=== PATIENT | male | born 1960 | race Caucasian/White ===

== ENCOUNTER 2019-07-29 15:46 | Emergency (ER) | payer SELFPAY ==
[2019-07-29 15:52] VITALS: BP 169/75; PULSE 77; RESP 16; TEMP 36.9; O2SAT 100
--- NOTE | 2019-07-29 15:59 | ED.SKABFB ---
HPI - Skin/Abscess/Foreign Bdy General Chief complaint: Skin/Abscess/Foreign Body Stated complaint: poison kaleb or oak Time Seen by Provider: 07/29/19 15:59 Source: patient and RN notes reviewed History of Present Illness HPI narrative: Patient is a 59-year-old male who presents the urgent care with complaints of possible poison kaleb/poison oak. Patient states that he was playing tennis on July 06 and went to fetch a ball and evergreen tree/some brush. Patient states that he believes he got it at that time and has been having issues ever since. Patient states that he has areas from the bottom of his feet to the top of his head. States that he has been using calamine lotion as well as Benadryl without much improvement. Patient states he now has a small area to the right eyebrow. No other acute complaints. No acute distress noted. Patient read the plan of care. Related Data Allergies Allergy/AdvReac Type Severity Reaction Status Date / Time No Known Allergies Allergy Verified 07/29/19 16:04 Review of Systems Review of Systems: Narrative: CONSTITUTIONAL: Denies fever, chills, or sweats. EYES: Denies visual changes, redness, or discharge. ENT: Denies rhinorrhea, congestion, sore throat, or otalgia. CARDIOVASCULAR: Denies chest pain, palpitations, or edema. RESPIRATORY: Denies cough or dyspnea. GASTROINTESTINAL: Denies abdominal pain, nausea, vomiting, or diarrhea. GENITOURINARY: Denies dysuria or hematuria. SKIN: Reports of diffuse itchy poison kaleb/poison oak MUSCULOSKELETAL: Denies back pain, joint pain, or myalgia. NEUROLOGIC: Denies headache, numbness, or weakness. All other systems reviewed are negative, except as documented in HPI. [facility] Past Medical History Medical History (Updated 07/29/19 @ 16:09 by DONNIE Haney) Chronic sinusitis Traumatic brain injury (~2011) Social History Social History Smoking status: Heavy tobacco smoker Second hand tobacco smoke exposure: Yes Alcohol intake: never Substance use: never Substance use type: does not use Comments At the time of my signature, I reviewed and agree with the nursing past medical, surgical, social, and family history. There is no relevant family history pertinent to the patient complaint. Exam Narrative: Exam Narrative: GENERAL: This is a well-nourished, well-developed patient, in no apparent distress. HEAD: normocephalic, atraumatic. EYES: PERRL. Sclera clear/white. Vision is grossly intact. EARS: External ears normal NOSE: External nose normal with no obvious nasal discharge, nares without redness, no rhinorrhea. THROAT: Mucous membranes moist NECK: Neck supple SKIN: Linear dry dermatitis noted to the scalp as well as to the right eyebrow and scattered areas to bilateral lower arms NEURO: awake, alert, and oriented to person, place and time. There were no obvious focal neurologic abnormalities. EXTREMITIES: No clubbing, cyanosis, or edema. Course Vital Signs Vital signs: Vital Signs Temperature 98.4 F 07/29/19 15:52 Pulse Rate 77 07/29/19 15:52 Respiratory Rate 16 07/29/19 15:52 Blood Pressure 169/75 H 07/29/19 15:52 Pulse Oximetry 100 07/29/19 15:52 Temperature 98.4 F 07/29/19 15:52 Pulse Rate 77 07/29/19 15:52 Respiratory Rate 16 07/29/19 15:52 Blood Pressure 169/75 H 07/29/19 15:52 Pulse Oximetry 100 07/29/19 15:52 Reviewed?patient is informed that they may have pre-hypertension or hypertension based on a blood pressure reading in the department. I recommend the patient call the primary care provider listed on their discharge instructions or a physician of their choice this week to arrange follow-up for further evaluation of possible pre-hypertension or hypertension. MDM - Skin/Abscess/Foreign Bdy MDM Narrative Medical decision making narrative: Advised the patient to complete steroid regimen as prescribed. Make sure to eat and drink with me
== END 2019-07-29 16:14 | disposition home or self-care (01) ==
PROVIDERS: Emergency Provider Nurse Practitioner Family; PCP Physician Assistant
DX: L23.7 Allergic contact dermatitis due to plants, except food (principal); F17.210 Nicotine dependence, cigarettes, uncomplicated
CPT/HCPCS: 99213; G0463

== ENCOUNTER 2019-08-12 17:13 | Emergency (ER) | payer SELFPAY ==
[2019-08-12 17:31] VITALS: BP 116/80; PULSE 87; RESP 20; TEMP 36.7; O2SAT 100
--- NOTE | 2019-08-12 17:41 | ED.SKABFB ---
HPI - Skin/Abscess/Foreign Bdy General Chief complaint: Skin/Abscess/Foreign Body Stated complaint: poison kaleb or sumac Time Seen by Provider: 08/12/19 17:27 Source: patient and RN notes reviewed Mode of arrival: ambulatory Limitations: no limitations History of Present Illness HPI narrative: Patient presents today complaining of a severely pruritic rash. Reports the rash began at the end of June. He believes it is poison kaleb/sumac/oak, and he contracted it while playing tennis. He was subsequently seen on 07/29/2019 at [facility], where he was prescribed a Medrol Dosepak. On that same day, patient missed an appointment with his PCP, but unbeknownst to him, they sent in a prescription for prednisone. He picked up the prednisone from the pharmacy, believed it was the prescription from [facility], and took 10 days of tapering prednisone. States when he was taking 50 mg a day or 40 mg a day he felt like the rash was improving, but once he got down to 20 and 30 mg a day he did not see a difference. States he has been using calamine lotion with mild relief, but that he has the rash from his toes to the top of his head. He shaved his head, legs, and chest due to the severe rash. MD complaint: rash Related Data Allergies Allergy/AdvReac Type Severity Reaction Status Date / Time No Known Allergies Allergy Verified 07/29/19 16:04 Review of Systems Review of Systems: Narrative: CONSTITUTIONAL: Denies body aches, fever, chills, or sweats. EYES: Denies visual changes, redness, or discharge. ENT: Denies rhinorrhea, congestion, sore throat, or otalgia. CARDIOVASCULAR: Denies chest pain, palpitations, or edema. RESPIRATORY: Denies cough or dyspnea. GASTROINTESTINAL: Denies abdominal pain, nausea, vomiting, or diarrhea. GENITOURINARY: Denies dysuria or hematuria. SKIN: Denies wounds. + Pruritic rash MUSCULOSKELETAL: Denies back pain, joint pain, or myalgia. NEUROLOGIC: Denies headache, numbness, tingling, or weakness. PSYCH: Denies depression or anxiety. [facility] Past Medical History Medical History (Updated 08/12/19 @ 17:43 by Rebekah Mccabe, DATA CONVERSION OPERATOR, ) Chronic sinusitis Traumatic brain injury (~2011) Social History Social History Smoking status: Heavy tobacco smoker Second hand tobacco smoke exposure: Yes Alcohol intake: never Substance use: never Substance use type: does not use Comments At time of signature, I have reviewed and agree with nursing past medical, surgical, social and family history unless otherwise noted. Please see nursing chart for further information. There is no relevant family history pertinent to the presenting complaint Exam Narrative: Exam Narrative: GENERAL: Well-appearing, well-nourished, and in no acute distress. Patient is covered head to toe in calamine lotion. HEAD: Normocephalic, atraumatic. EYES: EOMI. No redness or drainage. Conjunctivae normal. ENT: Mucous membranes pink and moist. NECK: Normal AROM. Supple. No lymphadenopathy. CHEST: No respiratory distress. EXTREMITIES: Normal range of motion. No edema. SKIN: Warm, dry. Capillary refill normal. Normal skin turgor. Patient is covered head to toe in calamine lotion, obscuring any rashes he may have. Areas that itched the most were cleaned with water and cloth. Patient has an erythematous patch of papules to the dorsum of the left foot without signs of infection, measuring ~5x5cm. No drainage. He has a few patches of similar rash to the back of the neck and posterior scalp, measuring ~2x2cm each. Patient states he has a line of rash along the diaphragm but none was visualized during exam. No rash to the face was noted. No widespread rash to the arms or legs was noted as well. NEURO: No focal deficits. Alert and oriented x3. Gait steady. PSYCH: Normal affect. No signs of depression or anxiety. Course Vital Signs Vital signs: Vital Signs Temperature 98.1
== END 2019-08-12 17:45 | disposition home or self-care (01) ==
PROVIDERS: Emergency Provider Nurse Practitioner; PCP Physician Assistant
DX: L25.9 Unspecified contact dermatitis, unspecified cause (principal); Z87.820 Personal history of traumatic brain injury; F17.200 Nicotine dependence, unspecified, uncomplicated
CPT/HCPCS: 99213; G0463

== ENCOUNTER 2022-07-17 05:07 | Emergency (ER) | payer SELFPAY ==
[2022-07-17 05:14] VITALS: BP 182/100; PULSE 84; RESP 16; TEMP 36.4; O2SAT 100
[2022-07-17 05:50] LABS: Basophils Percent Auto 0.3 % (0.2-1.2); Eosinophils Absolute Auto 0.3 K/mm3 (0-0.3); Eosinophils Percent Auto 2.7 % (0-4.4); Hematocrit 41.1 % (42.0-52.0); Hemoglobin 13.4 g/dL (14.0-18.0); Immature Granulocyte Absolute 0.03 K/mm3 (0.00-0.031); Immature Granulocyte Percent A 0.3 % (0-0.5); Lymphocytes Absolute Auto 3.54 K/mm3 (0.9-3.2); Lymphocytes Percent Auto 34.6 % (18.3-44.2); Mean Corpuscular HGB Conc 32.6 g/dl (32-36); Mean Corpuscular Hemoglobin 28.3 pg (26-34); Mean Corpuscular Volume 86.7 fl (80-100); Mean Platelet Volume 8.9 fl (7.4-10.4); Monocytes Absolute Auto 0.8 K/mm3 (0.1-0.6); Monocytes Percent Auto 7.8 % (2.6-8.5); Neutrophils Absolute Auto 5.5 K/mm3 (1.3-6.7); Neutrophils Percent Auto 54.3 % (45.5-73.1); Platelet Count Result 251 k/mm3 (150-375); Red Blood Count 4.74 M/mm3 (4.6-6.20); Red Cell Distribution Width 13.3 % (11.5-14.5); White Blood Count 10.2 K/mm3 (4.5-10.0)
[2022-07-17 06:01] LABS: Ethanol < 10 mg/dL (<10)
[2022-07-17 06:02] LABS: Alanine Aminotransferase 17 U/L (6-50); Alkaline Phosphatase 86 U/L (38-126); Anion Gap 5 mmol/L (8-16); Aspartate Amino Transferase 25 U/L (17-59); Bilirubin,Total 0.3 mg/dL (0.2-1.3); Blood Urea Nitrogen 9 mg/dL (9-20); Calcium 8.5 mg/dL (8.4-10.2); Carbon Dioxide 30 mmol/L (22-30); Chloride 104 mmol/L (98-107); Estimated CRCL calculation 57 ml/min; Estimated Glomerular Filt Rate > 60; Glucose 121 mg/dL (65-110); Potassium 3.4 mmol/L (3.4-5.0); Sodium 139 mmol/L (137-145)
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
[2022-07-17 06:21] LABS: Appearance Urine Clear (Clear); Bacteria Urine None Seen /hpf; Bilirubin Urine Negative (Negative); Blood Urine Trace (Negative); Color Urine Yellow (Yellow); Glucose Urine UA Negative (Negative); Ketones Urine Negative (Negative); Leukocyte Esterase Ur Negative LEU/UL (Negative); Nitrate Urine Negative (Negative); Non Pathogenic Casts 0-2; Protein Urine Negative (Negative); RBC Urine 0-2 /hpf (0-2); Specific Grav Ur 1.003 (1.001-1.035); Squamous Epithelial Cell Urine None seen /hpf (Few); Urobilinogen Urine 0.2 mg/dL (<2.0); WBC Urine 0-5 /hpf
[2022-07-17 06:32] LABS: Add Urine Microscopic? YES
[2022-07-17 07:14] VITALS: BP 132/69; PULSE 67; RESP 16; O2SAT 97
[2022-07-17 07:58] LABS: SARS-CoV-2 RNA PCR Negative (Negative)
[2022-07-17 08:10] LABS: Amphetamine Screen Urine Negative (Negative); Barbiturate Screen Urine Negative (Negative); Benzodiazepines Screen Urine Negative (Negative); Cannabinoid Screen Urine Positive (Negative); Cocaine Screen Urine Negative (Negative); Methadone Screen Urine Negative (Negative); Opiate Screen Urine Negative (Negative); Phencyclidine Screen Urine Negative (Negative)
== END 2022-07-17 10:03 | disposition home or self-care (01) ==
PROVIDERS: Family Medicine; Emergency Provider Emergency Medicine
DX: F22 Delusional disorders (principal); F29 Unspecified psychosis not due to a substance or known physiological condition; Z20.822 Contact with and (suspected) exposure to COVID-19
CPT/HCPCS: 36415; 80053; 80307; 81001; 85025; 87635; 99284